=== PATIENT | male | born 1965 | race Caucasian/White ===

== ENCOUNTER 2017-02-16 11:35 | Outpatient (CLI) | payer OTHER ==
--- NOTE | 2017-02-16 15:06 | DIAGNOSTIC IMAGING REPORT ---
PROCEDURE: XR MAJOR JT INJ OR ASPIRATION INDICATION: Right hip pain. TECHNIQUE: The patient was advised of the usual risks and complications including infection, bleeding, and allergy. Supine position. Following sterile preparation and 1% lidocaine anesthetic, fluoroscopic guidance (1.8 minutes, 678.9 6 mGy) was utilized to place a 22- gauge spinal needle into the anterolateral aspect of the right hip joint. Intraarticular position was confirmed with 2 mL of Isovue 200 contrast material. Subsequently, a 6 mL solution (2 mL 40 mg/mL Kenalog, 2 mL 1% lidocaine, 2 mL 0.5% Marcaine) was infused and the needle was withdrawn. COMPARISON: Compared MRI of the pelvis and right hip on 09/11. FINDINGS: Two AP views. Confirmation of intraarticular injection. The patient tolerated the procedure reasonably well and was discharged home in satisfactory condition with instructions to resume routine activity the following day, and to call for any untoward symptoms (increasing pain/swelling). IMPRESSION: 1. Successful fluoroscopically guided therapeutic injection of the right hip joint.
== END 2017-02-16 23:00 ==
LOC: XR SRH 11:35
PROC: BQ101ZZ Fluoroscopy of Right Hip using Low Osmolar Contrast (ICD-10-PCS; principal; 2017-02-16)
PROC: 3E0U33Z Introduction of Anti-inflammatory into Joints, Percutaneous Approach (ICD-10-PCS; principal; 2017-02-16)
DX: M25.551 Pain in right hip (principal)
CPT/HCPCS: 82445